=== PATIENT | male | born 1940 | race Caucasian/White ===

== ENCOUNTER → 2018-10-24 | Outpatient (CLI) | payer MEDICARE ==
[~2018-10-24] MED LIST: AEC81 PO; ATOR10TA69 PO; DRON400T2 PO; ESCI10TA54 PO; GLIP10TA9 PO; IOHEXOL-350 50ML VIAL IV ONE; METF-446 PO
== END | disposition home or self-care (01) ==
LOC: OIH 16:32
PROVIDERS: ATTEND Internal Medicine Cardiovascular Disease
DX: I65.23 Occlusion and stenosis of bilateral carotid arteries (principal)
CPT/HCPCS: 70496; 70498; Q9967

== ENCOUNTER 2019-04-27 06:30 | Day surgery (SDC) | payer MEDICARE ==
[2019-04-26 14:00] VITALS: BP 116/56
[2019-04-26 14:14] LABS: BASOPHILS % (AUTO) 0.8 % (0.0-5.0); EOSINOPHILS % (AUTO) 1.1 % (0.0-8.0); HEMATOCRIT 30.2 % (42-54); LYMPHOCYTES % (AUTO) 15.7 % (21.0-51.0); MEAN CORPUSCULAR HEMOGLOBIN 26.9 pg (27.0-33.0); MEAN CORPUSCULAR HGB CONC 32.7 g/dL (32.0-36.0); MEAN CORPUSCULAR VOLUME 82.2 fL (79-99); MONOCYTES % (AUTO) 8.3 % (3.0-13.0); NEUTROPHILS % (AUTO) 74.1 % (40.0-77.0); PLATELET COUNT (AUTO) 250 K/uL (130-400); RED BLOOD CELL COUNT(AUTO) 3.67 MIL/uL (4.50-6.20); RED CELL DISTRIBUTION WIDTH 16.9 % (11.0-15.5); WHITE BLOOD COUNT (AUTO) 6.5 K/uL (4.8-10.8)
[2019-04-26 14:21] LABS: CREATININE 1.3 mg/dL (0.5-1.5); POTASSIUM 3.4 mmol/L (3.5-5.1)
[2019-04-26 14:23] LABS: INR 1.15 (0.85-1.15); PARTIAL THROMBOPLASTIN TIME 27.5 SEC (26.3-35.5)
--- NOTE | 2019-04-26 15:55 | NUR ---
labs abnormal h&H , k+ reported to Dr. Conti, message left with Krystle abbott. labs faxed to his office for him to review. awaiting for further orders
--- NOTE | 2019-04-26 16:10 | NUR ---
lab received call back as per DR.MAZZOLA SANTOS TO PROCEED WITH PROCEDURE, NO FURTHER ORDERS
[2019-04-27] VITALS (12 sets, daily range): BP systolic 104–203; BP diastolic 42–82
[~2019-04-27] VITALS: Ht 182.9 cm; Wt 76.5 kg
[~2019-04-27 06:30] MED LIST changes: -AEC81 PO; +AMIO200T5 PO; +APIX5TAB PO; -ATOR10TA69 PO; -DRON400T2 PO; -GLIP10TA9 PO; -IOHEXOL-350 50ML VIAL IV ONE; +ROSU20TA23 PO; +SODIUM CHLORIDE 0.9% 500ML 500 ML IV SCH; +UBID100C10 PO; +VITA-328 PO
[2019-04-27] MEDS ORDERED: SODIUM CHLORIDE 0.9% 1000ML 1,000 ML IV ONE (06:36)
[2019-04-27] MEDS ORDERED: ASPI-1181 PO (06:46)
[2019-04-27] MEDS ORDERED: PROPOFOL 10 MG/ML 20ML VIAL IV ONE (07:51)
--- NOTE | 2019-04-27 08:11 | NUR ---
CARDIOVERSION WITH ANESTHESIA Chely YANEZ CRNA AND MYSELF IN ROOM. TIME OUT DONE AT 0811. CARDIOVERSION BY DR. BLACKWOOD, SHOCKED AT 0813 WITH 150 JOULES, CONVERTED TO SINUS RHYTHM STATED BY DR. BLACKWOOD AT 0814. PT TOLERATED WELL. [facility]ISH OUT OF ROOM BY 0819, DR. BLACKWOOD OUT OF ROOM BY [address]35. PER [address] BLACKWOOD, PT MAY DISCHARGED HOME AT 0900, MAY GIVE DIET WHEN FULLY AWAKE FF UP IN OFFICE IN 2 WEEKS. RESUME ELIQUIS TONIGHT.
== END 2019-04-27 09:35 | disposition home or self-care (01) ==
LOC: DAH 06:30
PROVIDERS: ATTEND Internal Medicine Cardiovascular Disease
DX: I95.1 Orthostatic hypotension (principal); I48.91 Unspecified atrial fibrillation; I44.7 Left bundle-branch block, unspecified; I10 Essential (primary) hypertension; I25.10 Atherosclerotic heart disease of native coronary artery without angina pectoris; K21.9 Gastro-esophageal reflux disease without esophagitis; E11.43 Type 2 diabetes mellitus with diabetic autonomic (poly)neuropathy; Z95.1 Presence of aortocoronary bypass graft; Z98.890 Other specified postprocedural states; Z95.5 Presence of coronary angioplasty implant and graft; Z79.01 Long term (current) use of anticoagulants; Z79.82 Long term (current) use of aspirin; Z79.899 Other long term (current) drug therapy; E78.5 Hyperlipidemia, unspecified
CPT/HCPCS: 36415; 80048; 82948 ×2; 85025; 85610; 85730; 92960; 93005 ×2; A4215; A4216; A4221; A4222; A4223 ×2; A4606; J2704; J7030